=== PATIENT | male | born 2000 | race Caucasian/White ===

== ENCOUNTER 2025-03-28 13:02 | Emergency (ER) | payer BC ==
[~2025-03-28] VITALS: Ht 190.5 cm; Wt 128.8 kg
[2025-03-28 13:44] LABS: ASPARTATE AMINOTRANSFERASE 19 U/L (15-37); CALCIUM, SERUM 8.4 mg/dL (8.5-10.1); CREATININE 0.8 mg/dL (0.6-1.3); TOTAL PROTEIN, SERUM 6.9 g/dL (6.4-8.2); UREA NITROGEN, BLOOD 13 mg/dL (7-18)
[2025-03-28 13:51] LABS: SODIUM SERUM 137 mmol/L (136-145)
[2025-03-28 13:59] LABS: PLATELET COUNT (AUTO) 174 K/uL (150-450); RED BLOOD CELL COUNT(AUTO) 4.25 MIL/uL (4.5-6.0); RED CELL DISTRIBUTION WIDTH 12.8 % (11.5-15.0); WHITE BLOOD COUNT (AUTO) 6.0 K/uL (4.3-11.0)
[2025-03-28] MEDS ORDERED: LACOSAMIDE 100 MG in IV NS 0.9% 50 ML IV SCH (14:00)
[2025-03-28 14:11] LABS: ALCOHOL, BLOOD < 10 mg/dL (0-10)
[2025-03-28] MEDS: LACOSAMIDE 100 MG in IV NS 0.9% 50 ML IV ONE (14:39)
[2025-03-28 15:47] VITALS: BP 103/62; TEMP 97.8; O2SAT 98
== END 2025-03-28 15:47 | disposition home or self-care (01) ==
LOC: ER 13:05
DX: R56.9 Unspecified convulsions (principal)
CPT/HCPCS: 36415; 80048-TC; 80076-TC; 82962-TC; 85025-TC; G0480

== ENCOUNTER 2025-04-19 11:20 | Emergency (ER) | payer BC ==
[~2025-04-19] VITALS: Ht 188 cm; Wt 123.4 kg
[2025-04-19] MEDS: IV NS 0.9% 1,000 ML BAG IV ONE (12:06)
[2025-04-19 12:18] LABS: PLATELET COUNT (AUTO) 192 K/uL (150-450); RED BLOOD CELL COUNT(AUTO) 4.54 MIL/uL (4.5-6.0); RED CELL DISTRIBUTION WIDTH 12.8 % (11.5-15.0); WHITE BLOOD COUNT (AUTO) 5.6 K/uL (4.3-11.0)
[2025-04-19 12:20] LABS: CALCIUM, SERUM 9.3 mg/dL (8.5-10.1); CREATININE 1.0 mg/dL (0.6-1.3); SODIUM SERUM 138.0 mmol/L (136-145); UREA NITROGEN, BLOOD 18.0 mg/dL (7-18)
[2025-04-19 12:26] LABS: ASPARTATE AMINOTRANSFERASE 21.0 U/L (15-37); TOTAL PROTEIN, SERUM 7.6 g/dL (6.4-8.2)
[2025-04-19 14:28] VITALS: BP 142/75; TEMP 98.7; O2SAT 98
== END 2025-04-19 14:25 | disposition home or self-care (01) ==
LOC: ER 11:29
DX: G40.909 Epilepsy, unspecified, not intractable, without status epilepticus (principal); Z88.8 Allergy status to other drugs, medicaments and biological substances
CPT/HCPCS: 99283; 96360; 85025; 80048; 80076; 36415; J7030

== ENCOUNTER 2025-06-05 14:06 | Emergency (ER) | payer BC ==
[~2025-06-05] VITALS: Ht 182.9 cm; Wt 131.5 kg
[2025-06-05 14:09] VITALS: TEMP 98
[2025-06-05 15:12] LABS: PLATELET COUNT (AUTO) 164 K/uL (150-450); RED BLOOD CELL COUNT(AUTO) 4.46 MIL/uL (4.5-6.0); RED CELL DISTRIBUTION WIDTH 13.5 % (11.5-15.0); WHITE BLOOD COUNT (AUTO) 5.1 K/uL (4.3-11.0)
[2025-06-05 15:29] LABS: CALCIUM, SERUM 8.6 mg/dL (8.5-10.1); CREATININE 0.9 mg/dL (0.6-1.3); SODIUM SERUM 143.0 mmol/L (136-145); UREA NITROGEN, BLOOD 16.0 mg/dL (7-18)
[2025-06-05 16:00] VITALS: BP 98/63; O2SAT 99
[2025-06-05] MEDS: LEVETIRACETAM (500MG) 1,000 MG in IV NS 0.9% 90 ML IV SCH (16:00)
== END 2025-06-05 19:22 ==
LOC: ER 14:10
DX: G40.909 Epilepsy, unspecified, not intractable, without status epilepticus (principal); F19.11 Other psychoactive substance abuse, in remission; F14.10 Cocaine abuse, uncomplicated
CPT/HCPCS: 99285; 96365; 71045; 93005 ×2; 85025; 80048; 36415; 80164; J7030; J1953